=== PATIENT | female | born 1970 | race Caucasian/White ===

== ENCOUNTER 2019-02-22 15:30 | Emergency (ER) | payer BC ==
[~2019-02-22] VITALS: Ht 165.1 cm; Wt 87.1 kg
[2019-02-22 16:48] LABS: ABSOLUTE EOSINOPHILS 0.3 thou/uL (0.0-0.7); ABSOLUTE LYMPHOCYTES 1.4 thou/uL (0.8-5.3); ABSOLUTE MONOCYTES 0.3 thou/uL (0.0-1.2); ABSOLUTE NEUTROPHILS 7.8 thou/uL (1.6-8.1); BASOPHILS 0.2 %; EOSINOPHILS 3.3 %; HEMATOCRIT 39.7 % (37.0-47.0); HEMOGLOBIN 13.7 gm/dL (12.0-15.0); LYMPHOCYTES 13.8 %; MCH 32.9 pg (26.0-34.0); MCHC 34.4 g/dL (28.0-37.0); MCV 95.7 fL (80.0-100.0); MONOCYTES 3.1 %; MPV 9.1 fl. (7.2-11.1); NUCLEATED RBCS 0 /100WBC; PLATELET COUNT* 172 thou/uL (150-400); POLYS 79.6 %; RBC 4.14 mil/uL (4.20-5.00); RDW-CV 12.8 % (10.5-14.5); WBC 9.8 thou/uL (4.0-11.0)
[2019-02-22 16:53] LABS: CALCIUM 9.2 mg/dL (8.5-10.1); CREATININE 0.8 mg/dL (0.6-1.3); POTASSIUM 3.5 mmol/L (3.5-5.1)
[2019-02-22 16:54] LABS: APTT 26.2 Seconds (25.0-31.3)
[2019-02-22 16:57] LABS: ALBUMIN 3.6 g/dL (3.4-5.0); TOTAL BILIRUBIN 0.5 mg/dL (<0.1-1.0); TOTAL PROTEIN 6.9 g/dL (6.4-8.2)
[2019-02-22 17:07] LABS: URINE BILIRUBIN NEGATIVE (Negative); URINE BLOOD NEGATIVE (Negative); URINE CLARITY CLEAR; URINE COLOR YELLOW; URINE GLUCOSE-RANDOM NEGATIVE (Negative); URINE KETONES NEGATIVE (Negative); URINE LEUKOCYTES-REFLEX NEGATIVE (Negative); URINE NITRITE-REFLEX NEGATIVE (Negative); URINE PROTEIN NEGATIVE (Negative); URINE SPECIFIC GRAVITY <= 1.005 (1.005-1.030); URINE UROBILINOGEN 0.2 E.U./dl (0.2-1.0)
[2019-02-22] MEDS ORDERED: DOXYCYCLINE MO100 M1 PO (17:07)
[2019-02-22] MEDS ORDERED: MEDROLDOSEPACK PO (17:08)
[2019-02-22 17:24] VITALS: BP 137/80
[2019-02-26 10:08] LABS: F. TULARENSIS IGG Negative (Negative); F. TULARENSIS IGM Negative (Negative)
== END 2019-02-22 17:31 | disposition home or self-care (01) ==
LOC: M.ERS 15:30
PROVIDERS: Physician Assistant
DX: S30.860A Insect bite (nonvenomous) of lower back and pelvis, initial encounter (principal); L53.9 Erythematous condition, unspecified; W57.XXXA Bitten or stung by nonvenomous insect and other nonvenomous arthropods, initial encounter; Y93.89 Activity, other specified; Y92.89 Other specified places as the place of occurrence of the external cause; Y99.8 Other external cause status